=== PATIENT | male | born 1945 | race Caucasian/White ===

== ENCOUNTER 2021-11-11 15:27 | Outpatient (CLI) | payer MEDICARE, SELFPAY ==
--- NOTE | ~2021-11-11 | MR_ITS ---
EXAMINATION: MR pelvis wo con DATE: 11/11/2021 16:29 INDICATION: Malignant neoplasm of prostate. TECHNIQUE: Magnetic resonance imaging (MRI) of the pelvis was performed without intravenous contrast. COMPARISON: CT abdomen and pelvis 08/17/2010 FINDINGS: There are changes of prostatectomy. There is a 13 x 16 mm left internal iliac node. There is no free intraperitoneal fluid. There is diverticulosis of the colon without evidence of diverticulitis. There are no dilated loops of bowel. There is a left inguinal hernia containing fat. IMPRESSION: 1. Mildly enlarged left internal iliac node, consistent with metastatic disease. Reviewed, dictated and finalized at location A. IMPRESSION: 1. Mildly enlarged left internal iliac node, consistent with metastatic disease .
== END 2021-11-11 15:28 | disposition home or self-care (01) ==
PROVIDERS: PCP Family Medicine; Visit Provider Radiology Radiation Oncology
DX: C61 Malignant neoplasm of prostate (principal); Z51.0 Encounter for antineoplastic radiation therapy; K40.90 Unilateral inguinal hernia, without obstruction or gangrene, not specified as recurrent
CPT/HCPCS: 72195